=== PATIENT | male | born 1975 | race Native Hawaiian/Other Pacific Islander ===

== ENCOUNTER → 2022-11-21 08:19 | Outpatient (CLI) | payer BC, SELFPAY ==
--- NOTE | 2022-11-21 08:54 | US_ITS ---
FINAL REPORT CLINICAL HISTORY: ELEVATED LIVER ENZYMES COMPARISON: None FINDINGS: Sonographic images of the right upper quadrant were obtained. The pancreas is partially obscured. There is diffuse increased echogenicity in the liver compatible with fatty infiltration of the liver. There are multiple gallstones in a partially collapsed gallbladder. The common bile duct is borderline enlarged, measuring 6 mm. There is a hypoechoic focus in the dome of the liver measuring 5 mm in diameter most compatible with a hepatic cyst. Limited images of the right kidney are unremarkable. IMPRESSION: Multiple gallstones present and a partially collapsed gallbladder. The common bile duct is borderline enlarged, measuring 6 mm in diameter. Would recommend MRCP for further evaluation of the biliary ductal system as indicated. Fatty infiltration of the liver. Reviewed, Interpreted and Dictated by Celestine Herrmann III, MD Transcribed by Chel Ojeda Authenticated and [facility]
== END ==
PROVIDERS: PCP Nurse Practitioner Family; Visit Provider Nurse Practitioner Family
DX: R74.8 Abnormal levels of other serum enzymes (principal)
CPT/HCPCS: 76705

== ENCOUNTER 2024-09-15 13:44 | Outpatient (RCR) | payer BC, SELFPAY ==
--- NOTE | 2024-09-15 14:53 | HMH.PTOPEV ---
PT Outpatient Evaluation Rehab PT Outpatient Evaluation Start: 09/15/24 13:48 Freq: Status: Active Protocol: Document 09/15/24 13:48 CELENA (Rec: 09/15/24 14:53 CELENA [id number]) E-signed By Murali Zavala, PT Outpatient Therapy Subjective History Subjective History Pt is a 49 yom who is referred to [facility] outpatient PT with complaints of R knee pain that began approximately 6 weeks ago of insidious onset. He reports that he has not had any prior issues with his R knee. He reports that his pain has progressively worsened since it began. Reports that standing for longer periods and walking . Reports occasional popping when he walks. Reports that it will sometimes swell. Occupation: [employer] PMH: Pre-Diabetes, HTN, Fatty Liver New diagnosis of cancer in past 12 No months? Chief Complaint Pain,Stiff,Swelling,Catches/ Locks Symptom Type Ache,Sharp Symptoms Relieved By Brace/Support,OTC Meds, Prescription Meds Symptoms Aggravated By Physical Activity,Walking, Lifting Prior Functional Limitations None Current Functional Limitations Housework,Driving,Standing, Walking,Stairs Symptom Description Intermittent,Activity Dependent Level of pain today (0-10) 3 Pain scale - at its best (0-10) 0 Pain scale - at its worst (0-10) 9 Hip/Knee Eval Gait Observation General Gait Pattern Observation Antalgic Gait,Decrease Weight Bear (R),Decrease Stride Lngth (L) Palpation Tenderness right Knee Palpation Finding Tenderness Knee Palpation Overall Comment TTP 3/4, along pes anserine, adductors and medial hamstring . MMT Hip Flexion Strength Grade 4 Good Hip Abduction Strength Grade 4- Good- Hip Adduction Strength Grade 2 Poor Hip Extension Strength Grade 3+ Fair+ Knee Extension Strength Grade 4 Good Knee Flexion Strength Grade 4- Good- ROM Knee ROM Reason Not Measured Within Functional Limits Special Tests Hip Elvira's Test Negative Right Hip Luis Test Negative Right Hip Piriformis Test Negative Right Sciatic Nerve Tension Test Negative Right Knee Anterior Drawer Test Negative Right Knee Bounce Home Test Negative Right Knee Jerk (Clunk) Test Negative Right Loyd 90/90 Test (PCL) Negative Right Knee Medial-Lateral Grind Test Negative Right Knee Santoyo Test Negative Right Knee Anterior Saul Test Negative Right Knee Pivot Shift Test Negative Right Knee Valgus Stress Test Negative Right Knee Varus Stress Test Negative Right Patella Apprehension Test Negative Right Lower Extremity Functional Index Activities Today, do you or would you have any difficulty at all with: a.Any of your usual work, housework or Moderate difficulty school activities b. Your usual hobbies, recreational or Quite a bit of difficulty sporting activities c. Getting into or out of the bath No difficulty d. Walking between rooms A little bit of difficulty e. Putting on your shoes or socks Moderate difficulty f. Squatting Extreme difficulty or unable to perform activity g. Lifting an object, like a bag of A little bit of difficulty groceries from the floor h. Performing light activities around A little bit of difficulty your home i. Performing heavy activities around Quite a bit of difficulty your home j. Getting into or out of a car Quite a bit of difficulty k. Walking 2 blocks Extreme difficulty or unable to perform activity l. Walking a mile Extreme difficulty or unable to perform activity m. Going up or down 10 stairs (about 1 Extreme difficulty or unable flight of stairs) to perform activity n. Standing for 1 hour Extreme difficulty or unable to perform activity o. Sitting for 1 hour Extreme difficulty or unable to perform activity p. Running on even ground Extreme difficulty or unable to perform activity q. Running on uneven ground Extreme difficulty or unable to perform activity r. Making sharp turns while running fast Extreme difficulty or unable to perform activity s. Hopping Extreme difficulty or unable to perform activity t. Rolling over in bed A little bit of difficulty LEFI Score Lower Extremity Functional Index Score 23 Miscellaneous Dx PT Eval Objective Objective Pain with resisted sartorius activation, pain with passive hip ABD, pain with resisted hip ADD, pain with resisted knee flexion. Outpatient Therapy Assessment Impairments Problems/Impairmments Palpation Tenderness,Impaired Range of Motion,Impaired Strength,Impaired Gait Pattern ,Impaired Walking,Impaired Standing,Impaired Household Care,Impaired Stair Climbing, Subjective C/O Pain Prognosis Rehab Potential Good Clinical Impression Consistent with Diagnosis Yes Consistent with Pes Anserine Bursitis Short Term Goals Number of Weeks 3 Decreased Palpation Tenderness Yes: 1-2/4 to TTP Assessment Above Increase Strength Yes: 3+/5 to R hip/knee Increase Ability to Stand Yes: 30 minutes without increasing pain Improve LEFI Score Yes: >33 Decrease Subjective C/O Pain Yes: 09/20 with above assessment Patient to be Ind w/ HEP Yes [employer] Goals Number of Weeks 6 Decreased Palpation Tenderness Yes: 0-1/4 to TTP assessment above Increase Strength Yes: 4+/5 to R hip/knee Improve Gait Pattern without Assistive Yes: Normalized Gait mechanics Device Increase Ability to Stand Yes: 1 hour without increasing pain Improve Ability For Household Care Yes: Able to do normal house and lawn care. Improve LEFI Score Yes: >45 Decrease Subjective C/O Pain Yes: 2-3/10 with above assessment Patient to be Ind w/ Advanced HEP Yes Outpatient Therapy Plan of Care Treatment Plan May Include Therapeutic Exercise Including Home Yes Exercise Program Manual Therapy Techniques Yes Neuromuscular Re-education Yes Therapeutic Activities to Return to Yes Previous Functional/Work Level Gait Training Yes ADL/Self Care Education Yes Thermal Modalities Yes Electrical Stimulation Yes Iontophoresis Yes Massage Yes Manual Lymphatic Drainage Yes Eval/Re-Eval Yes Frequency Times per week 2 Duration Number of Weeks 4-6 Addendums This patient is a candidate for social No or vocational rehab? Patient/Guardian verbally acknowledges Yes understanding of treatment program and consents to further treatment? Patient/Guardian verbally acknowledges Yes understanding of diagnosis, prognosis and goals for treatment? Eval Complexity PT Charges 80984 - Moderate Complexity Shoulder/Elbow Eval Shoulder Objective Measurements Elbow Objective Measurements PHYSICIAN CERTIFICATION: I certify the specified therapy services for Manfred Rothman are required, authorized, and reviewed every 30 days.
== END 2024-09-15 23:59 | disposition home or self-care (01) ==
LOC: PT 13:44
PROVIDERS: Visit Provider Nurse Practitioner Family
DX: M25.561 Pain in right knee (principal)
CPT/HCPCS: 97163

== ENCOUNTER 2024-11-12 12:49 | Outpatient (RCR) | payer BC, SELFPAY ==
--- NOTE | 2024-11-12 13:52 | HMH.PTOPEV ---
PT Outpatient Evaluation Rehab PT Outpatient Evaluation Start: 11/12/24 12:54 Freq: Status: Active Protocol: Document 11/12/24 12:55 CELENA (Rec: 11/12/24 13:52 CELENA [id number]) E-signed By Murali Zavala, PT Outpatient Therapy Subjective History Subjective History Pt is a 49 yom who is referred to [facility] outpatient PT for acute R knee pain. Pt was evaluated for R knee pain 2 months ago with signs and symptoms of pes anserine bursitis. Pt reports that those symptoms have improved but now his pain is moreso into the front of his knee. Pt reports that he was prescribed an anti-inflammatory which he was taking prn. His directions were to take the medicine daily. He reports that he began to take his medicine daily and his pain has improved. He reports that his knee continues to feel weak and unstable. He reports that when he stands, his knee will want to snap backwards. He reports that he bought a knee brace, but it did not help. Pt reports difficulty with squatting, walking longer distances, doing heavier housework and yardwork. 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 Chief Complaint Pain,Gives out/Unstable Symptom Type Ache,Sharp Symptoms Relieved By Prescription Meds Symptoms Aggravated Standing,Physical Activity,Walking,Lifting By Prior Functional None Limitations Current Functional Lifting,Standing,Squatting,Recreation Activity,Walking, Limitations Stairs Symptom Description Intermittent,Activity Dependent Level of pain today 3 (0-10) Pain scale - at its 0 best (0-10) Pain scale - at its 9 worst (0-10) Hip/Knee Eval Gait Observation General Gait Pattern Antalgic Gait,Decrease Weight Bear (R),Decrease Stride Observation Lngth (L) Assistive Device Assistive Devices None / NA Palpation Tenderness right Knee Palpation Tenderness Finding Knee Palpation TTP 3/4 isolated to Patellar Tendon Overall Comment MMT Hip Flexion Strength 3+ Fair+ Grade Hip Abduction 3 Fair Strength Grade Hip Adduction 3 Fair Strength Grade Hip Extension 4- Good- Strength Grade Knee Extension 4- Good- Strength Grade Knee Flexion 4+ Good+ Strength Grade ROM Knee ROM Reason Not Within Functional Limits Measured Special Tests Hip Bowstring (Cram) Negative Left,Negative Right Test Hip Elvira's Test Positive Right Hip Luis Test Positive Right Darrion Test Positive Knee Valgus Stress Negative Right Test Knee Varus Stress Negative Right Test Knee Namita Test Negative Right Patella Apprehension Negative Right Test Patellar Grind Test Negative Right Patellar Tilt Test Negative Right Lower Extremity Functional Index Activities Today, do you or would you have any difficulty at all with: a.Any of your usual Moderate difficulty work, housework or school activities b. Your usual Moderate difficulty hobbies, recreational or sporting activities c. Getting into or A little bit of difficulty out of the bath d. Walking between Moderate difficulty rooms e. Putting on your Moderate difficulty shoes or socks f. Squatting Quite a bit of difficulty g. Lifting an object Moderate difficulty , like a bag of groceries from the floor h. Performing light A little bit of difficulty activities around your home i. Performing heavy Moderate difficulty activities around your home j. Getting into or A little bit of difficulty out of a car k. Walking 2 blocks Quite a bit of difficulty l. Walking a mile Quite a bit of difficulty m. Going up or down Moderate difficulty 10 stairs (about 1 flight of stairs) n. Standing for 1 Moderate difficulty hour o. Sitting for 1 Quite a bit of difficulty hour p. Running on even Extreme difficulty or unable to perform activity ground q. Running on uneven Extreme difficulty or unable to perform activity ground r. Making sharp Extreme difficulty or unable to perform activity turns while running fast s. Hopping Extreme difficulty or unable to perform activity t. Rolling over in A little bit of difficulty bed LEFI Score Lower Extremity 32 Functional Index Score Outpatient Therapy Assessment Impairments Problems/ Palpation Tenderness,Impaired Strength,Impaired Gait Impairmments Pattern,Impaired Walking,Impaired Standing,Impaired Lifting,Impaired Household Care,Impaired Stair Climbing ,Impaired Squatting,Impaired Recreational Activities, Impaired Running,Impaired Work Activities,Impaired Balance,Subjective C/O Pain Prognosis Rehab Potential Good Clinical Impression Consistent with Yes Diagnosis Consistent with Patellar Tendinitis Additional details: M76.51 Short Term Goals Number of Weeks 3 Decreased Palpation Yes: 2/4 to TTP assessment above Tenderness Increase Strength Yes: 4/5 to R knee/hip Improve Gait Pattern Yes: Normalized Gait Mechanics without Assistive Device Increase Ability to Yes: 30 minutes without increasing symptoms Stand Improve LEFI Score Yes: >52 Decrease Subjective Yes: 5/10 with above assessment C/O Pain Patient to be Ind w/ Yes HEP Foreclosure Field Inspector Goals Number of Weeks 6 Decreased Palpation Yes: 0-1/4 to TTP assessment above Tenderness Increase Strength Yes: 4+/5 to R hip/knee Increase Ability to Yes: 1 hour without increasing symptoms Stand Improve Ability For Yes: House and yardwork without increasing symptoms Household Care Improve Ability to Yes: Flight of stairs with reciprocal stepping pattern Climb Stairs Improve LEFI Score Yes: >62 Decrease Subjective Yes: 2-3/10 with above assessment C/O Pain Patient to be Ind w/ Yes Advanced HEP Outpatient Therapy Plan of Care Treatment Plan May Include Therapeutic Exercise Yes Including Home Exercise Program Manual Therapy Yes Techniques Neuromuscular Re- Yes education Therapeutic Yes Activities to Return to Previous Functional/Work Level Gait Training Yes ADL/Self Care Yes Education Dry Needling Yes Thermal Modalities Yes Electrical Yes Stimulation Ultrasound/ Yes Phonophoresis Iontophoresis Yes Manual Lymphatic Yes Drainage Eval/Re-Eval Yes Frequency Times per week 2 Duration Number of Weeks 6 Addendums This patient is a No candidate for social or vocational rehab ? Patient/Guardian Yes verbally acknowledges understanding of treatment program and consents to further treatment? Patient/Guardian Yes verbally acknowledges understanding of diagnosis, prognosis and goals for treatment? Eval Complexity PT Charges 89428 - Moderate Complexity Shoulder/Elbow Eval Shoulder Objective Measurements Elbow Objective Measurements PHYSICIAN CERTIFICATION: I certify the specified therapy services for Manfred Rothman are required, authorized, and reviewed every 30 days.
== END 2024-11-12 23:59 | disposition home or self-care (01) ==
LOC: PT 12:49
PROVIDERS: PCP Nurse Practitioner Family; Visit Provider Nurse Practitioner Family
DX: M25.561 Pain in right knee (principal)
CPT/HCPCS: 97162